=== PATIENT | female | born 1950 | race American Indian/Alaskan Native ===

== ENCOUNTER 2018-09-22 18:14 | Inpatient (IN) | payer BC ==
[2018-09-22 20:03] VITALS: BMI 36.6
[2018-09-22] MEDS ORDERED: Albuterol 0.042% Inhal Sol (1.25 mg/3 mL) UD IH PRN (21:18)
[2018-09-23] MEDS: Pantoprazole 40 mg EC Tab PO SCH (06:02)
[2018-09-23 06:35] LABS: HEMOGLOBIN 11.8 g/dL (12.0-16.0); MEAN CELL VOLUME 93.4 fl (81.0-99.0); MEAN CORPUSCULAR HEMOGLOBIN 30.5 pg (27.0-31.0); MEAN CORPUSCULAR HGB CONC 32.7 g/dL (33.0-37.0); RBC 3.87 Mil/uL (3.80-5.20); RED CELL DISTRIBUTION WIDTH 14.5 % (11.5-14.5); WHITE BLOOD COUNT 4.8 K/uL (4.8-10.8)
[2018-09-23 06:41] LABS: ALB/GLOB RATIO 1.3 (1.0-2.1); ALBUMIN 4.2 g/dL (3.5-5.0); ALT/SGPT 21 U/L (9-52); AST/SGOT 20 U/L (14-36); BLOOD UREA NITROGEN 13 mg/dl (7-17); CALCIUM 9.5 mg/dL (8.4-10.2); GFR NON-AFRICAN AMERICAN 55; HDL CHOLESTEROL 92 MG/DL (30-70)
[2018-09-23 06:52] LABS: LDL CHOLESTEROL 137 mg/dL (0-129)
[2018-09-23] MEDS ORDERED: Patient's Own Med (Arformoterol [Brovana] 15 MCG) IH SCH (09:00)
[2018-09-23] MEDS: Budesonide 0.25 mg/2 ml Inhal Susp UD IH SCH (09:21)
--- NOTE | 2018-09-23 13:06 | CP.PCM.CON ---
History of Present Illness - History of Present Illness History of Present Illness: Dr Sherman PMR consultation on Roya Welch, born 1950 who has been admitted to [facility] for acute inpatient rehabilitation following a left CVA with right HP. She had a very minor CVA in 2012 with no residual. She had previously been independent. She is right hand dominant. Review of Systems - Constitutional Constitutional: absent: Chills, Daytime Sleepiness - EENT Eyes: absent: Change in Vision Ears: absent: Ear Discharge, Ear Pain Nose/Mouth/Throat: absent: Nasal Congestion, Nasal Discharge - Cardiovascular Cardiovascular: absent: Chest Pain - Respiratory Respiratory: absent: Cough, Hemoptysis, Wheezing - Gastrointestinal Gastrointestinal: absent: Abdominal Pain, Constipation - Musculoskeletal Musculoskeletal: absent: Back Pain - Integumentary Integumentary: absent: Bleeding Lesions - Neurological Neurological: absent: Abnormal Hearing, Abnormal Movements, Dizziness - Hematologic/Lymphatic Hematologic: absent: Easy Bruising Past Patient History - Infectious Disease Hx of Infectious Diseases: None - Tetanus Immunizations Tetanus Immunization: Unknown - Past Medical History & Family History Past Medical History?: Yes - Past Social History Smoking Status: Never Smoked Drugs: Denies Home Situation {Lives}: With Family - CARDIAC Hx Cardiac Disorders: Yes Hx Hypertension: Yes - PULMONARY Hx Respiratory Disorders: Yes Hx Asthma: Yes - NEUROLOGICAL HX Cerebrovascular Accident: Yes (TIA in 08/2013) - HEENT Hx HEENT Problems: No - RENAL Hx Chronic Kidney Disease: No - ENDOCRINE/METABOLIC Hx Endocrine Disorders: No - HEMATOLOGICAL/ONCOLOGICAL Hx Blood Disorders: No - INTEGUMENTARY Hx Dermatological Problems: Yes (Healing rash noted to back.) - MUSCULOSKELETAL/RHEUMATOLOGICAL Hx Falls: No - GASTROINTESTINAL Hx Gastrointestinal Disorders: No - GENITOURINARY/GYNECOLOGICAL Hx Genitourinary Disorders: No - PSYCHIATRIC Hx Substance Use: No - SURGICAL HISTORY Hx Surgeries: No - ANESTHESIA Hx Anesthesia: No Meds Allergies/Adverse Reactions: Allergies Allergy/AdvReac Type Severity Reaction Status Date / Time codeine AdvReac HEADACHE Verified 09/22/18 23:30 - Medications Medications: Current Medications Acetaminophen (Tylenol 325mg Tab) 650 mg PO Q6 PRN PRN Reason: Pain 1-10 Albuterol Sulfate (Albuterol 0.042% Inhal Malina (1.25mg/3ml) Ud) 1.25 mg IH RQ4 P RN PRN Reason: Wheezing Amlodipine Besylate (Norvasc) 5 mg PO DAILY [facility] Last Admin: 09/23/18 08:23 Dose: 5 mg Aspirin (Aspirin Chewable) 81 mg PO DAILY [facility] Last Admin: 09/23/18 08:23 Dose: 81 mg Atorvastatin Calcium (Lipitor) 40 mg PO DIN [facility] Budesonide (Pulmicort Respules) 0.25 mg IH Q12 [facility] Last Admin: 09/23/18 09:21 Dose: Not Given Clopidogrel Bisulfate (Plavix) 75 mg PO DAILY [facility] Last Admin: 09/23/18 08:23 Dose: 75 mg Heparin Sodium (Porcine) (Heparin) 5,000 units SC Q12 [facility]; Protocol Last Admin: 09/23/18 08:24 Dose: 5,000 units Home Med (Arformoterol [Brovana]) 15 mcg IH Q12 [facility] Hydralazine HCl (Apresoline) 25 mg PO Q6 PRN PRN Reason: Systolic BP over 200 Pantoprazole Sodium (Protonix Ec Tab) 40 mg PO 0600 [facility] Last Admin: 09/23/18 06:02 Dose: 40 mg Physical Exam - Constitutional Appears: Non-toxic, No Acute Distress - Head Exam Head Exam: ATRAUMATIC, NORMAL INSPECTION, NORMOCEPHALIC - Eye Exam Eye Exam: EOMI - ENT Exam ENT Exam: Mucous Membranes Moist - Respiratory Exam Respiratory Exam: NORMAL BREATHING PATTERN - Cardiovascular Exam Cardiovascular Exam: REGULAR RHYTHM - GI/Abdominal Exam GI & Abdominal Exam: absent: Distended, Firm - Extremities Exam Extremities exam: Negative for: calf tenderness - Neurological Exam Neurological exam: Alert, CN II-XII Intact, Oriented x3 - Psychiatric Exam Psychiatric exam: Normal Affect, Normal Mood - Skin Skin Exam: Warm Results - Vital Signs Recent Vital Signs: Last Vital Signs Temp 97.7 F 09/23/18 08:37 Pulse 75 09/23/18 08:37 Resp 19 09/23/18 08:37 BP 160/69 H 09/23/18 08:37 Pulse Ox 97 09/23/18 08:37 - Labs Result Diagrams: 09/23/18 06:15 09/23/18 06:15 Labs: Laboratory Results - last 24 hr 09/23/18 09/23/18 09/23/18 06:15 06:15 06:15 WBC 4.8 RBC 3.87 Hgb 11.8 L Hct 36.1 MCV 93.4 MCH 30.5 MCHC 32.7 L RDW 14.5 Plt Count 280 Sodium 139 Potassium 4.5 Chloride 105 Carbon Dioxide 28 Anion Gap 11 BUN 13 Creatinine 1.0 Est GFR ( Amer) > 60 Est GFR (Non-Af Amer) 55 Random Glucose 123 H Hemoglobin A1c 6.0 Calcium 9.5 Total Bilirubin 0.3 AST 20 ALT 21 Alkaline Phosphatase 93 Total Protein 7.6 Albumin 4.2 Globulin 3.3 Albumin/Globulin Ratio 1.3 Triglycerides 81 Cholesterol 271 H LDL Cholesterol Direct 137 H HDL Cholesterol 92 H Vitamin B12 253 Assessment & Plan - Assessment and Plan (Free Text) Assessment: 68 year old right hand dominant female with left MCA distribution CVA PT/OT to continue to help increase functional independence Team conference for d/c planning Pain: controlled Vascular: no evidence of DVT GI: No evidence of constipation or diarrhea Patient is an excellent acute rehabilitation candidate and will have focused PT, OT and recreational therapy to help facilitate a safe and appropriate d/c plan impairment code 01.2
[2018-09-23] MEDS: Albuterol HFA 90 mcg/actuation (8 g) INH PRN (18:04)
[2018-09-24] MEDS: Pantoprazole 40 mg EC Tab PO SCH (06:55)
[2018-09-24] MEDS: Budesonide 0.25 mg/2 ml Inhal Susp UD IH SCH ×2 (08:45→20:06)
--- NOTE | 2018-09-24 13:39 | PCM.OPOC ---
Physiatry Overall Plan of Care - Overall Plan of Care Estimated Length of Stay in Weeks: 3 Rehab Impairment: Mobility, Gait, Balance, Coordination Etiologic Diagnosis: Cerebrovascular Accident Rehab/Medical Prognosis: Good - Anticipated Interventions Physical Therapy:: Yes Occupational Therapy:: Yes Speech Therapy:: No Recreational Therapy:: Yes - Therapy Goals Bed Mobility: Supervision Ambulation: Supervision Functional Positional Changes:: Supervision - Discharge Plan Discharge Destination: Home
--- NOTE | 2018-09-24 14:01 | CP.PCM.PN ---
Subjective - Date & Time of Evaluation Date of Evaluation: 09/24/18 Time of Evaluation: 14:00 - Subjective Subjective: Patient seen in room good PO intake very happy with current care to this point and working hard has some right upper extremity hand movement that is 3-/5 and proximal extension is stronger continue current care right LE 4/5 Objective - Vital Signs/Intake and Output Vital Signs (last 24 hours): Temp Pulse Resp BP Pulse Ox 98.1 F 78 21 148/75 97 09/24/18 08:39 09/24/18 08:39 09/24/18 08:39 09/24/18 08:39 09/24/18 08:39 - Medications Medications: Current Medications Acetaminophen (Tylenol 325mg Tab) 650 mg PO Q6 PRN PRN Reason: Pain 1-10 Albuterol (Ventolin Hfa 90 Mcg/Actuation (8 G)) 2 puff INH RQ6 PRN PRN Reason: Shortness of Breath Last Admin: 09/23/18 18:04 Dose: 2 puff Albuterol Sulfate (Albuterol 0.042% Inhal Malina (1.25mg/3ml) Ud) 1.25 mg IH RQ4 PRN PRN Reason: Wheezing Amlodipine Besylate (Norvasc) 5 mg PO DAILY [facility] Last Admin: 09/24/18 08:04 Dose: 5 mg Aspirin (Aspirin Chewable) 81 mg PO DAILY [facility] Last Admin: 09/24/18 08:05 Dose: 81 mg Atorvastatin Calcium (Lipitor) 80 mg PO DAILY [facility] Last Admin: 09/24/18 08:04 Dose: 80 mg Budesonide (Pulmicort Respules) 0.25 mg IH Q12 [facility] Last Admin: 09/24/18 08:45 Dose: Not Given Clopidogrel Bisulfate (Plavix) 75 mg PO DAILY [facility] Last Admin: 09/24/18 08:04 Dose: 75 mg Heparin Sodium (Porcine) (Heparin) 5,000 units SC Q12 [facility]; Protocol Last Admin: 09/24/18 08:05 Dose: 5,000 units Hydralazine HCl (Apresoline) 25 mg PO Q6 PRN PRN Reason: Systolic BP over 200 Last Admin: 09/24/18 08:05 Dose: 25 mg Pantoprazole Sodium (Protonix Ec Tab) 40 mg PO 0600 [facility] Last Admin: 09/24/18 06:55 Dose: 40 mg Fluticasone/Salmeterol (Advair Diskus 100/50) 1 puff IH Q12 PRN PRN Reason: Shortness of Breath - Labs Labs: 09/23/18 06:15 09/23/18 06:15
[2018-09-25] MEDS: Pantoprazole 40 mg EC Tab PO SCH (06:14)
[2018-09-25] MEDS: Budesonide 0.25 mg/2 ml Inhal Susp UD IH SCH ×2 (08:09→20:01)
--- NOTE | 2018-09-25 17:39 | CP.PCM.PN ---
Subjective - Date & Time of Evaluation Date of Evaluation: 09/25/18 Time of Evaluation: 17:36 - Subjective Subjective: Patient seen in the room and is in very good spirits and is very happy with all of the care she has received to this point. Some return in the right UE since yesterday no n/v no headaches continue with current care excellent acute rehab candidate Objective - Vital Signs/Intake and Output Vital Signs (last 24 hours): Temp Pulse Resp BP Pulse Ox 98.2 F 74 20 150/70 96 09/25/18 10:00 09/25/18 10:00 09/25/18 10:00 09/25/18 10:00 09/25/18 10:00 - Medications Medications: Current Medications Acetaminophen (Tylenol 325mg Tab) 650 mg PO Q6 PRN PRN Reason: Pain 1-10 Albuterol (Ventolin Hfa 90 Mcg/Actuation (8 G)) 2 puff INH RQ6 PRN PRN Reason: Shortness of Breath Last Admin: 09/23/18 18:04 Dose: 2 puff Albuterol Sulfate (Albuterol 0.042% Inhal Malina (1.25mg/3ml) Ud) 1.25 mg IH RQ4 PRN PRN Reason: Wheezing Amlodipine Besylate (Norvasc) 5 mg PO DAILY [facility] Last Admin: 09/25/18 08:40 Dose: 5 mg Aspirin (Aspirin Chewable) 81 mg PO DAILY [facility] Last Admin: 09/25/18 08:40 Dose: 81 mg Atorvastatin Calcium (Lipitor) 80 mg PO DAILY [facility] Last Admin: 09/25/18 08:41 Dose: 80 mg Budesonide (Pulmicort Respules) 0.25 mg IH Q12 [facility] Last Admin: 09/25/18 08:09 Dose: Not Given Clopidogrel Bisulfate (Plavix) 75 mg PO DAILY [facility] Last Admin: 09/25/18 08:40 Dose: 75 mg Heparin Sodium (Porcine) (Heparin) 5,000 units SC Q12 [facility]; Protocol Last Admin: 09/25/18 08:41 Dose: 5,000 units Hydralazine HCl (Apresoline) 25 mg PO Q6 PRN PRN Reason: Systolic BP over 200 Last Admin: 09/24/18 08:05 Dose: 25 mg Pantoprazole Sodium (Protonix Ec Tab) 40 mg PO 0600 [facility] Last Admin: 09/25/18 06:14 Dose: 40 mg Fluticasone/Salmeterol (Advair Diskus 100/50) 1 puff IH Q12 PRN PRN Reason: Shortness of Breath - Labs Labs: 09/23/18 06:15 09/23/18 06:15
--- NOTE | 2018-09-26 05:21 | HP ---
Late entry for history and physical done on 09/23/2018. HISTORY OF PRESENT ILLNESS: This is a 68-year-old female with history of hypertension who was admitted to acute rehabilitation at [facility] after sustaining a cerebrovascular accident with right-sided weakness the week before. The patient was treated for acute stroke, and she remained to have neurological deficit. The patient was admitted to acute rehabilitation for physical therapy, occupational therapy, and deconditioning. The patient denied to have any chest pain, shortness of breath; and other review of systems is negative. ALLERGIES: POSITIVE FOR CODEINE. MEDICATIONS: Reviewed and ordered as per MAR. SOCIAL HISTORY: No history of smoking, EtOH, or substance abuse. PAST MEDICAL HISTORY: Hypertension, bronchial asthma, hypercholesterolemia, and gastroesophageal reflux disease. FAMILY HISTORY: Noncontributory. PHYSICAL EXAMINATION: GENERAL: The patient is in bed, not in any cardiopulmonary distress. VITAL SIGNS: Blood pressure was 160/69, temperature 97.7, respiratory rate 19, and pulse 75. HEENT: Pupils equal and reactive to light. Normal-appearing mucosa of the conjunctivae, oropharynx, and nasal membrane mucosa. NECK: Supple. No JVD. No carotid bruit. No lymph node. No thyromegaly. CHEST AND LUNGS: Bilateral symmetrical expansion. Good air exchange. No rales, no rhonchi. CARDIOVASCULAR SYSTEM: PMI not localized. S1, S2. No additional sounds. ABDOMEN: Normoactive bowel sounds. No tenderness. No organomegaly. No masses. EXTREMITIES: No cyanosis, no clubbing, no edema. CENTRAL NERVOUS SYSTEM: Alert, awake, and oriented x2; and the patient has right-sided hemiparesis. ASSESSMENT: Cerebrovascular accident with right-sided hemiparesis, hypertension, hypercholesterolemia. PLAN: Continue current medications including antiplatelets, physical therapy, occupational therapy, physical medicine, and rehabilitation consult. [place] MD
[2018-09-26] MEDS: Pantoprazole 40 mg EC Tab PO SCH (06:22)
[2018-09-26] MEDS: Budesonide 0.25 mg/2 ml Inhal Susp UD IH SCH ×2 (08:11→20:04)
--- NOTE | 2018-09-26 17:23 | PN ---
DATE: 09/26/2018 SUBJECTIVE: She is not in any cardiopulmonary distress. The patient is cooperative to physical therapy and occupational therapy. PHYSICAL EXAMINATION: VITAL SIGNS: Blood pressure 143/68, temperature 97.9, respiratory rate 18 and pulse 70. HEENT: Pupils equal, reactive to light. Normal-appearing mucosa of the conjunctivae, oropharynx and nasal membrane mucosa. NECK: Supple. No JVD. No carotid bruit. No lymph node. No thyromegaly. CHEST AND LUNGS: Bilateral symmetrical expansion. Good air exchange. No rales, no rhonchi. CARDIOVASCULAR SYSTEM: PMI not localized. S1, S2. No additional sounds. ABDOMEN: Normoactive bowel sounds. No tenderness. No organomegaly. No masses. EXTREMITIES: No cyanosis, no clubbing, no edema. DRIVING INSTRUCTOR: Alert, awake, oriented x2. There is right-sided hemiparesis. ASSESSMENT: Cerebrovascular accident with right-sided hemiparesis, hypertension, hypercholesterolemia, atherosclerotic cardiovascular disease, history of bronchial asthma. PLAN: Continue current medications including statins and antiplatelet and continue the bronchodilators. Discussed the patient's condition with her primary care physician, Dr. Roldan. [place] MD
[2018-09-27] MEDS: Pantoprazole 40 mg EC Tab PO SCH (06:41)
[2018-09-27] MEDS: Fluticasone-Salmeterol 100-50mcg Diskus IH PRN (18:21)
[2018-09-27] MEDS: Budesonide 0.25 mg/2 ml Inhal Susp UD IH SCH (20:00)
[2018-09-28] MEDS: Pantoprazole 40 mg EC Tab PO SCH (06:19)
[2018-09-28] MEDS: Budesonide 0.25 mg/2 ml Inhal Susp UD IH SCH ×2 (07:14→20:00)
[2018-09-28] MEDS: Fluticasone-Salmeterol 100-50mcg Diskus IH PRN (21:18)
--- NOTE | 2018-09-28 23:34 | PN ---
DATE: 09/28/2018 SUBJECTIVE: The patient is seen today. She is cooperative to physical therapy and occupational therapy. PHYSICAL EXAMINATION VITAL SIGNS: Blood pressure 145/58, temperature 98.2, respiratory rate 18 and pulse 65. HEENT: Pupils equal and reactive to light. Normal-appearing mucosa of the conjunctivae, oropharynx and nasal membrane mucosa. NECK: Supple. No JVD. No carotid bruit. No lymph node. No thyromegaly. CHEST AND LUNGS: Bilateral symmetrical expansion. Good air exchange. No rales, no rhonchi. CARDIOVASCULAR SYSTEM: PMI not localized. S1 and S2. No additional sounds. ABDOMEN: Normoactive bowel sounds. No tenderness. No organomegaly. No masses. EXTREMITIES: No cyanosis. No clubbing. No edema. CENTRAL NERVOUS SYSTEM: Alert, awake, oriented x2. The patient has right-sided hemiparesis. ASSESSMENT: Cerebrovascular accident, hypertension, hypercholesterolemia. PLAN: Continue current medications and antilipidemic agents as well as antiplatelets. Continue physical therapy and occupational therapy. [place] MD
[2018-09-29] MEDS: Pantoprazole 40 mg EC Tab PO SCH (06:24)
[2018-09-29] MEDS: Budesonide 0.25 mg/2 ml Inhal Susp UD IH SCH ×4 (07:20→21:25)
--- NOTE | 2018-09-29 13:08 | PCM.PSYTMC ---
Acute Rehab Team Conference - - Vital Signs: Vital Signs (Last 8 Hours): Vital Signs 09/29/18 09/29/18 09/29/18 08:21 08:49 08:55 Temperature 96.6 F L 96.6 F L Pulse Rate 69 69 Respiratory 20 20 Rate Blood Pressure 133/96 H 133/96 H 133/96 H O2 Sat by Pulse 99 Oximetry Pain: 0 - Precautions: Precautions: Fall Prevention - Consults: Comment: Dr. Sherman - Toileting: Toileting: Supervision - Bladder Management: Bladder Pattern: Normal Voiding Method: Toilet Bladder Management: Supervision Other Intervention:: 0 - Transfers: Transfers: Minimal Assistance - ADL's: ADL's: Minimal Assistance - Patient/Family Teaching: Other Intervention:: Care post CVA and Safety precautions - Goals/Time Frame: Comment: Per multidisciplinary care plan and goals - Provider: Registered Nurse:: Ca Farmer Physical Therapy - Bed Mobility Bed Mobility: Supervision, Verbal Cues - Transfers Wheelchair to Mat: Supervision, Verbal Cues, Contact Guard Sit to Stand: Supervision, Verbal Cues Comment: NBQC. -cues for hand placement - Ambulation Level of Assistance: Supervision, Verbal Cues, Contact Guard, Minimal Assistance Distance (ft.): 100 Orthoses: n/a Comment: -100 feet x 4 trials with rest breaks. -progressed from WBQC to NBQC today. -patient requires CG/CS for gait with cues for sequencing and improved placement of cane for safety. -slow steady pattern with cues to try and improve fluidity. -reports fatigue in BLE with increased distances. -instances of min A for balance due to loss of balance 2' to narrow base of support. -VCs for upright gaze and sequencing. -seated rest breaks between trials. -trialed short distance no device of gait x 4-5 feet but patient with significant trendelenberg pattern, reaching for UE support on external devices and reports of feeling unsteady - Stair Negotiation Comment: 1 flight of steps with L rail with step to pattern, with CG on ascent and CG/min A on descent. -requires cues on descent for step to pattern and cues on ascent to ensure placement of full plantar surface of foot on each stair. - some SOB noted on descent but patient reports she didn't use inhaler for today - Standing Balance Static Stand: Supervision Comment: NBQC (LUE) - Pain Pain (assessed during therapy session): 0 Comment: pt denies pain - Insight/Carryover Insight/Carryover: Fair - Patient/Family Education Comment: -safety, therapy schedule, therapy goals, mobility, use of call george, transfers, encouraging bimanual UE integration, stroke recovery - Assessment/Plan Assessment: Ms. Welch continues to make good progress in therapies. Patient has impaired endurance as well as reports of feeling drowsy. Patient requires seated rest breaks between tasks. Patient has improving LLE control, coordination and activation but continues to require intermittent and unpredictable min A for safety with balance. PT progressed patient to NBQC and full flight of steps today with good response. Patient requires cues to attend to tasks and focus on her own activities instead of others around her. Patient continues to require skilled therapeutic services to continue addressing strength, mobility, safety, balance and education s/p CVA. PT recommends home discharge with intermittent supervision of family following care-taker training as well as home PT services. Pt returned to room at end of session with all needs met and call george in reach. RN aware of patients position OOB. - Goals Timeframe: 7 days Goals: -mod I withbed/mat mobility. -mod I with transfers with NBQC. -DS to ambulate 250 feet with NBQC. -S to negotiate 1 flight of steps with L rail on ascent and NBQC on descent (no rail on L side on descent at home) - Provider Physical Therapist:: Ritika Hoffman License Number:: [id number] Occupational Therapy - Arousal/Attention/Orientation Level of Consciousness: Awake, Alert Patient Orientation: Person, Place, Time, Appropriate to Age, Appropriate to Situation Assessment Comment: -impaired RUE motor control, AROM, & coordination. - impaired endurance/activity tolerance. -impaired safety awareness - ADL/IADL Self Feeding: Independent, Set-up Help Grooming: Independent, Set-up Help Bathing-Upper Ext: Verbal Cues, Set-up Help, Minimal Assistance Bathing-Lower Ext: Verbal Cues, Set-up Help, Moderate Assistance Dressing-Upper Ext: Verbal Cues, Set-up Help, Minimal Assistance Dressing-Lower Ext: Verbal Cues, Set-up Help, Minimal Assistance, Moderate Assistance Comment: -use of adaptive strategies for upper/lower body dressing, mila- techniques - Sitting Balance Static Sitting: Independent without upper extremity support Dynamic Sitting: Reaches across midline, Reaches out of base of support, Reaches within base of support, Requires supervision Comment: seated unsupported @ edge of bed - Transfers Wheelchair to Bed Transfers: Verbal Cues, Set-up Help, Contact Guard Toilet Transfers: Verbal Cues, Set-up Help, Contact Guard Comment: CG/CS and verbal cues for stand pivot transfers - Wheelchair Management Level of Assistance: Supervision Distance (ft.): 50 - Upper Extremity Status Right Upper Extremity Comment: *PROM IN RUE is WNLS. *AROM limited by impaired strength/motor control. *RUE status: R shoulder flex 3/5, abd 3-/5, elbow flex/extension: 3/5, forerarm supination/pronation: 3/5, wrist extension/flexion 3-/5, R thumb flexion/extension: 3-/5 Left Upper Extremity Comment: *LUE A/PROM is WNLS. *LUE strength 5/5 t/o - Pain Pain (assessed during therapy session): 0 Comment: N/A - Insight/Carryover Insight/Carryover: Fair - Patient/Family Education Comment: -rehab/OT goals, plan of care. -adl/transfers/mobility training using adaptive/compensatory strategies. -w/c propulsion/management. -RUE positioning/management/HEP-ROM exercises. -activity/endurance traning. - caregiver ed on self care strategies & pt's overall progress/future goals - Assessment/Plan Assessment: Pt is a 68 year old R handed female with dx: acute CVA with R hemiparesis. *Precautions: cardiac, fall precautions, + R laptray for RUE position. Pt presents with the following limitations: -impaired strength, AROM and motor control/coordination RUE/RLE. -impaired standing balance/tolerance. -impaired safety awareness. -impaired sensation RUE/R face. -impaired activity tolerance/endurance. -impaired knowledge of adaptive/compensatory strategies. -+min edema in RUE---which impact on fun ctional performnace of self care, functional transfers/mobility and IADLs. Pt demonstrates improve AROM/strength & gross motor function in RUE as well as improvement in sit<>stand/functional transfers, mobility however pt fatigies easily with standing activities. Pt will continue to benefit from skilled occupational therapy to address functional impairments to maximize functional performance & safety in self care, transfers and mobility for safe transition home with services pending progress. GOAL: *Mod I for adls, transfers/functional mobility, homemaking skills with assistive device(s) prn. *Caregiver to be I assisting/cueing pt with daily living tasks prn. - Goals Timeframe: 8 days Comment: *Upper body dressing: I/setup seated mila-techniques. *Lower body dressing: Supervision/setup using mila-techniques. *Toileting: Close S/CG and verbal cues with grab bar or ambulatory device. *Bathing: min assist and verbal cues seated/standing intermittently. *Transfers:<->bed,commode, w/c, & other surfaces with Supervision. *W/C propulsion/management: Mod I 150 feet +, manage B brake for safety. *RUE strength increase to 3+/5 throughout, deputy harbormaster strength to 10-lbs so can use as gross assist/active stabilzer duirng bimanual tasks. *Gather/transport/retrieve items from closet/drawer/refrigerator and other areas with CG/CS and verbal cues as needed to complete daily living tasks--using ambulatory device. *Caregiver ed: caregiver to be I assisting pt with adls, transfers/mobility, daily living tasks. *Light homemaking skills: min assist and verbal cues using ambulatory device - Provider Occupational Therapist:: Serena Riggins License Number: [id number] Speech Therapy - Consult Information Patient on Program: Yes Medical Diagnosis: CVA Treatment Diagnosis: minimal dysarthria - Assessment Comment: minimal - Plan Assessment: Yuri Pryor currently presents with minimal dysarthria characterized by intermittently impaired articulatory precision at the conversational level; however, pt utilizes compensatory speech strategies independently and her speech is intelligible 100% MOSHE. Pt has met all tx goals and is therefore being discharged from ST at this time. Discharge education and home exercise program was provided to pt with reciprocal comprehension expressed and demonstrated. Plan: Discharge Speech/Language Therapy Goals/Timeframe: Please see discharge summary dated 09/28/18 Recommendations: Discharge ST; pt has met all tx goals - Provider Therapist: Flora Morejon License Number: [id number] Recreational Therapy - Participation Participation: Participates in Individual and/or Group Sessions - Attendance Attendance: 3-5 times per week - Activities Leisure Activities: Cards and Games - Socialization Level of Socialization: Initiates/interacts freely with care givers and peer - Diversional Time Diversional Time: watching television, socializing - Assessment Assessment/Plan: Pt is agreeable to participate in 1:1 and group recreation therapy sessions throughout her stay on unit. Pt has participated in connect four task, bingo task with peers, and receives daily room visits for social support and encouragement. Pt will continue to benefit from recreation therapy and leisure education throughout her stay on unit. Problems Currently Limiting Participation: R side weakness as pt is R hand dominant, decrease leisure awareness level, decrease insight, R facial weakness Goals and Time Frame: Pt will be encouraged to participate in 1:1 and group recreation therapy sessions 3-5x/week to improve leisure awareness level, arousal level, leisure education, attention to task, problem solving, direction following, and overall mood state by date of discharge. - Provider Therapist: Megan Marie Nutrition - Current Diet Current Diet/Supplement/Feedings: Heart healthy - Appetite Percent Meal Consumed: 75-100% - Assessment/Goals/Time Frame Assessments/Goals/Time Frame: Pt at moderate nutritional risk. goal:1. Pt to consume 75-100% of meals. Follow-up 09/30/2018 - Provider Provider: Tosha Rossi Case Management - Psychosocial Assessment Support Systems: Renae Welch & Na Welch Psychological Interventions/Needs: Patient is alert and oriented and able to vebalize needs. Patient is cooperative and motivated for therapy as she has set personal goals to return to work and driving. Discharge Concerns: Patient will likely require intermittent supervision at home. Patient will require clearance prior to resuming work and driving. Patient with over a flight of stairs to negotiate at home. Patient/Family Meeting: CM met with patient and rehab team. Intervention/Goal/Outcome: 1. Goal- Intermittent supervision. 2. PLAN- home with VNS and continued support - refer to [facility]. 3. DME needs. 4. F/U appointments. 5. -Caregiver training scheduled with daughter for Friday10/02/18, 1pm. 6. Tentative discharge date 10/05/2018. 7. Continued acute rehab auth- CM spoke with RN/SHAHNAZ Costello with [employer] stating case is still pending review - Discharge Plan Discharge Plan: Home with services Home Services: [facility] - Provider Provider: Marsha Gonzalez License Number: [id number] Rehabilitation Plan - Treatment Plan Treatment Plan: Physical Therapy, Occupational Therapy, Dietary, Patient/Family Education - Discharge Plan Estimated Date of Discharge: 10/05/18 Discharge to: Home
--- NOTE | 2018-09-29 13:30 | CP.PCM.PN ---
Subjective - Date & Time of Evaluation Date of Evaluation: 09/29/18 Time of Evaluation: 13:28 - Subjective Subjective: Patient seen in room with daughter present doing well very motivated continue current care and family training especially diet training with her family on Objective - Vital Signs/Intake and Output Vital Signs (last 24 hours): Temp Pulse Resp BP Pulse Ox 96.6 F L 69 20 133/96 H 99 09/29/18 08:55 09/29/18 08:55 09/29/18 08:55 09/29/18 08:55 09/29/18 08:55 - Medications Medications: Current Medications Acetaminophen (Tylenol 325mg Tab) 650 mg PO Q6 PRN PRN Reason: Pain 1-10 Last Admin: 09/28/18 14:33 Dose: 650 mg Albuterol (Ventolin Hfa 90 Mcg/Actuation (8 G)) 2 puff INH RQ6 PRN PRN Reason: Shortness of Breath Last Admin: 09/23/18 18:04 Dose: 2 puff Albuterol Sulfate (Albuterol 0.042% Inhal Malina (1.25mg/3ml) Ud) 1.25 mg IH RQ4 PRN PRN Reason: Wheezing Amlodipine Besylate (Norvasc) 5 mg PO DAILY [facility] Last Admin: 09/29/18 08:21 Dose: 5 mg Aspirin (Aspirin Chewable) 81 mg PO DAILY [facility] Last Admin: 09/29/18 08:22 Dose: 81 mg Atorvastatin Calcium (Lipitor) 80 mg PO DAILY [facility] Last Admin: 09/29/18 08:21 Dose: 80 mg Budesonide (Pulmicort Respules) 0.25 mg IH Q12 [facility] Last Admin: 09/29/18 07:22 Dose: Not Given Clopidogrel Bisulfate (Plavix) 75 mg PO DAILY [facility] Last Admin: 09/29/18 08:21 Dose: 75 mg Heparin Sodium (Porcine) (Heparin) 5,000 units SC Q12 [facility]; Protocol Last Admin: 09/29/18 08:20 Dose: 5,000 units Hydralazine HCl (Apresoline) 25 mg PO Q6 PRN PRN Reason: Systolic BP over 200 Last Admin: 09/24/18 08:05 Dose: 25 mg Pantoprazole Sodium (Protonix Ec Tab) 40 mg PO 0600 [facility] Last Admin: 09/29/18 06:24 Dose: 40 mg Fluticasone/Salmeterol (Advair Diskus 100/50) 1 puff IH Q12 PRN PRN Reason: Shortness of Breath Last Admin: 09/28/18 21:18 Dose: 1 puff - Labs Labs: 09/23/18 06:15 09/23/18 06:15
[2018-09-30] MEDS: Pantoprazole 40 mg EC Tab PO SCH (06:36)
[2018-09-30] MEDS: Budesonide 0.25 mg/2 ml Inhal Susp UD IH SCH ×2 (08:56→20:00)
[2018-10-01] MEDS: Pantoprazole 40 mg EC Tab PO SCH (07:10)
[2018-10-01] MEDS: Fluticasone-Salmeterol 100-50mcg Diskus IH PRN (09:48)
[2018-10-01] MEDS: Budesonide 0.25 mg/2 ml Inhal Susp UD IH SCH (20:05)
[2018-10-02] MEDS: Pantoprazole 40 mg EC Tab PO SCH (06:50)
[2018-10-02] MEDS: Budesonide 0.25 mg/2 ml Inhal Susp UD IH SCH ×2 (09:00→20:48)
[2018-10-02] MEDS: Albuterol HFA 90 mcg/actuation (8 g) INH PRN (12:00)
[2018-10-02] MEDS: Fluticasone-Salmeterol 100-50mcg Diskus IH PRN (13:21)
--- NOTE | 2018-10-02 14:38 | CP.PCM.PN ---
Subjective - Date & Time of Evaluation Date of Evaluation: 10/02/18 Time of Evaluation: 14:37 - Subjective Subjective: Patient seen in the PT gym and is very happy with progress can range her arm overhead fair handgrip denies sob/cp can go sit to stand without assistance or dizziness continue family training which is being done now Objective - Vital Signs/Intake and Output Vital Signs (last 24 hours): Temp Pulse Resp BP Pulse Ox 98.2 F 81 20 113/70 99 10/01/18 20:40 10/02/18 08:26 10/01/18 20:40 10/02/18 08:26 10/01/18 20:40 - Medications Medications: Current Medications Acetaminophen (Tylenol 325mg Tab) 650 mg PO Q6 PRN PRN Reason: Pain 1-10 Last Admin: 09/28/18 14:33 Dose: 650 mg Albuterol (Ventolin Hfa 90 Mcg/Actuation (8 G)) 2 puff INH RQ6 PRN PRN Reason: Shortness of Breath Last Admin: 09/23/18 18:04 Dose: 2 puff Albuterol Sulfate (Albuterol 0.042% Inhal Malina (1.25mg/3ml) Ud) 1.25 mg IH RQ4 PRN PRN Reason: Wheezing Amlodipine Besylate (Norvasc) 5 mg PO DAILY [facility] Last Admin: 10/02/18 08:26 Dose: 5 mg Aspirin (Aspirin Chewable) 81 mg PO DAILY [facility] Last Admin: 10/02/18 08:26 Dose: 81 mg Atorvastatin Calcium (Lipitor) 80 mg PO DAILY [facility] Last Admin: 10/02/18 08:26 Dose: 80 mg Budesonide (Pulmicort Respules) 0.25 mg IH Q12 [facility] Last Admin: 10/02/18 09:00 Dose: Not Given Clopidogrel Bisulfate (Plavix) 75 mg PO DAILY [facility] Last Admin: 10/02/18 08:26 Dose: 75 mg Heparin Sodium (Porcine) (Heparin) 5,000 units SC Q12 [facility]; Protocol Last Admin: 10/02/18 08:27 Dose: 5,000 units Hydralazine HCl (Apresoline) 25 mg PO Q6 PRN PRN Reason: Systolic BP over 200 Last Admin: 09/24/18 08:05 Dose: 25 mg Pantoprazole Sodium (Protonix Ec Tab) 40 mg PO 0600 [facility] Last Admin: 10/02/18 06:50 Dose: 40 mg Fluticasone/Salmeterol (Advair Diskus 100/50) 1 puff IH Q12 PRN PRN Reason: Shortness of Breath Last Admin: 10/02/18 13:21 Dose: 1 puff - Labs Labs: 09/23/18 06:15 09/23/18 06:15
[2018-10-03] MEDS: Pantoprazole 40 mg EC Tab PO SCH (06:37)
[2018-10-03] MEDS: Budesonide 0.25 mg/2 ml Inhal Susp UD IH SCH ×2 (08:01→20:00)
[2018-10-03 08:05] LABS: HEMOGLOBIN 11.9 g/dL (12.0-16.0); MEAN CORPUSCULAR HEMOGLOBIN 30.5 pg (27.0-31.0); MEAN CORPUSCULAR HGB CONC 32.4 g/dL (33.0-37.0); RBC 3.91 Mil/uL (3.80-5.20); RED CELL DISTRIBUTION WIDTH 14.3 % (11.5-14.5); WHITE BLOOD COUNT 6.3 K/uL (4.8-10.8)
[2018-10-03 08:31] LABS: BLOOD UREA NITROGEN 19 mg/dl (7-17); CALCIUM 9.3 mg/dL (8.4-10.2); GFR NON-AFRICAN AMERICAN 55
[2018-10-03] MEDS: Fluticasone-Salmeterol 100-50mcg Diskus IH PRN (17:53)
--- NOTE | 2018-10-03 23:34 | PN ---
DATE: 10/02/2018 Late entry for visit done on 10/02/2018. The patient was seen on 10/02/2018. SUBJECTIVE: She was not in any cardiopulmonary distress. The patient is cooperative with physical therapy and occupational therapy. PHYSICAL EXAMINATION: VITAL SIGNS: Blood pressure was 138/75, temperature 98.2, respiratory rate 20, and pulse 68. HEENT: Pupils equal, reactive to light. Normal-appearing mucosa of the conjunctivae, oropharynx, and nasal membrane mucosa. NECK: Supple. No JVD. No carotid bruit. No lymph node. No thyromegaly. CHEST AND LUNGS: Bilateral symmetrical expansion. Good air exchange. No rales. The patient has mild scattered rhonchi in both lung grimes. CARDIOVASCULAR SYSTEM: PMI not localized. S1, S2. No additional sounds. ABDOMEN: Normoactive bowel sounds. No tenderness. No organomegaly. No masses. EXTREMITIES: No cyanosis, no clubbing, no edema. CENTRAL NERVOUS SYSTEM: Alert, awake, oriented x2 and the patient has right-sided hemiparesis. ASSESSMENT: Cerebrovascular accident with right-sided hemiparesis, hypertension, bronchial asthma, and hypercholesterolemia. PLAN: We will give the patient bronchodilators and inhaled steroid. Continue current antiplatelets and statins. Continue physical therapy and occupational therapy. [place] MD
[2018-10-04] MEDS: Pantoprazole 40 mg EC Tab PO SCH (06:25)
[2018-10-04] MEDS: Budesonide 0.25 mg/2 ml Inhal Susp UD IH SCH ×2 (08:09→20:01)
[2018-10-05] MEDS: Pantoprazole 40 mg EC Tab PO SCH (06:10)
[2018-10-05] MEDS: Fluticasone-Salmeterol 100-50mcg Diskus IH PRN (08:09)
[2018-10-05] MEDS: Budesonide 0.25 mg/2 ml Inhal Susp UD IH SCH ×2 (09:18→21:17)
[2018-10-05 15:07] LABS: ALB/GLOB RATIO 1.2 (1.0-2.1); ALBUMIN 4.3 g/dL (3.5-5.0); CALCIUM 9.3 mg/dL (8.4-10.2)
--- NOTE | 2018-10-06 00:15 | PN ---
DATE: 10/05/2018 DAILY PROGRESS NOTE SUBJECTIVE: The patient is seen today, 10/05/2018. She is not in any cardiopulmonary distress. The patient was complaining of cramps in the lower abdomen and left leg the day before. PHYSICAL EXAMINATION: VITAL SIGNS: Blood pressure 149/71, temperature 97.2, respiratory rate 18, and pulse 66. HEENT: Pupils equal and reactive to light. Normal-appearing mucosa of the conjunctivae, oropharynx, and nasal membrane mucosa. NECK: Supple. No JVD. No carotid bruit. No lymph node. No thyromegaly. CHEST AND LUNGS: Bilateral symmetrical expansion. Good air exchange. No rales. No rhonchi. CARDIOVASCULAR SYSTEM: PMI not localized. S1 and S2. No additional sounds. ABDOMEN: Normoactive bowel sounds. No tenderness. No organomegaly. No masses. EXTREMITIES: No cyanosis, no clubbing, no edema. CENTRAL NERVOUS SYSTEM: Alert, awake, oriented x3. Right-sided hemiparesis. LABORATORY DATA: Blood work today did not show any significant abnormality including magnesium and calcium. ASSESSMENT: Cerebrovascular accident with right-sided hemiparesis, hypercholesterolemia, hypertension. PLAN: Continue physical therapy and occupational therapy. Continue current medications and hydration. Encourage oral hydration. [place] MD
[2018-10-06] MEDS: Pantoprazole 40 mg EC Tab PO SCH (06:41)
[2018-10-06] MEDS: Budesonide 0.25 mg/2 ml Inhal Susp UD IH SCH ×2 (09:05→20:52)
--- NOTE | 2018-10-06 11:50 | PCM.PSYTMC ---
Acute Rehab Team Conference - - Vital Signs: Vital Signs (Last 8 Hours): Vital Signs 10/06/18 10/06/18 10/06/18 07:35 08:08 09:03 Temperature 97.2 F L 97.3 F L Pulse Rate 78 78 78 Respiratory 20 20 Rate Blood Pressure 145/66 144/78 145/66 O2 Sat by Pulse 98 Oximetry Pain: 0 - Precautions: Precautions: Fall Prevention - Consults: Comment: Dr. Sherman - Toileting: Toileting: Supervision - Bladder Management: Bladder Pattern: Normal Voiding Method: Toilet Bladder Management: Supervision Other Intervention:: 0 - Transfers: Transfers: Supervision - ADL's: ADL's: Minimal Assistance - Patient/Family Teaching: Other Intervention:: re: fall precaution. and safety environment - Goals/Time Frame: Comment: free from fall. q shift. - Provider: Registered Nurse:: Markus Beauchamp Physical Therapy - Bed Mobility Bed Mobility: Modified Independent, Supervision - Transfers Wheelchair to Mat: Modified Independent, Supervision Sit to Stand: Modified Independent Comment: NBQC - Ambulation Level of Assistance: Supervision, Verbal Cues Assistive Devices: Narrow base quad cane Orthoses: n/a Comment: 160 feet with NBQC with supervision. -requires cues to ensure placement of cane on ground prior to placement of RLE on ground to provide positive support to the LE during gait. -patient requests standing rest breaks during gait due to fatigue and SOB. -utilized reciprocal pattern with slow steady gait pattern with combination of step 2 point and 3 point gait pattern - Stair Negotiation Stairs: Level of Assistance: Supervision, Contact Guard Stairs: Assistive Devices: Left Handrail, Narrow base quad cane Comment: -asc/desc 1 flight of 8 inch steps with L rail on ascent with step to pattern with CS and descent with CG with use of NBQC in LUE. -some hesitancy on descent but slightly improved from last week - Standing Balance Static Stand: Modified [place] with assistive device Comment: NBQC - Pain Pain (assessed during therapy session): 0 Comment: routine: patient denies pain. -today: patient reports L hand and LLE posterior thigh cramping; reports RLE cramping last night while trying to sleep (RN aware) - Insight/Carryover Insight/Carryover: Fair - Patient/Family Education Comment: -safety, therapy schedule, therapy goals, mobility, safety, stroke rec overy, use of DME, recommendations for continued therapies. -family training with Daughter completed 10/02, see PT treatment note for details - Assessment/Plan Assessment: Patient continues to make slow but steady progress in therapies. Patient requires rest breaks due to fatigue from breathing (h/o asthma) as well as due to fatigue from lack of full muscular strength on R side. PT continues to focus therapies on improving strength, endurance, safety and reducing external assistance required with mobility. PT continues to focus on negotiation of steps as this is the area which patient continues to require hands on assistance on descent. Pt will continue to benefit from skilled therapy to maximize safety and I with all mobility s/p CVA. PT continues to recommend home discharge with home services and intermittent supervision. - Goals Timeframe: 3 days Goals: mod I with bed/mat mobility. mod i with transfers. mod I with short distance gait of 100 fete. S with long distance gait of 200 feet. CS with negotiation of steps on both ascent and descent - Provider Physical Therapist:: Ritika Hoffman License Number:: [id number] Occupational Therapy - Arousal/Attention/Orientation Level of Consciousness: Awake, Alert Patient Orientation: Person, Place, Time, Appropriate to Age, Appropriate to Situation Assessment Comment: -anxious baout RUE function, future life goals & lifestyle - ADL/IADL Self Feeding: Independent Grooming: Set-up Help Bathing-Upper Ext: Verbal Cues, Set-up Help, Minimal Assistance Bathing-Lower Ext: Verbal Cues, Set-up Help, Minimal Assistance Dressing-Upper Ext: Independent, Set-up Help Dressing-Lower Ext: Supervision, Set-up Help Homemaking: Verbal Cues, Set-up Help, Minimal Assistance Comment: -pt uses mila-techniques ti complete upper/lower body dressing tasks. -pt needs verbal cues to pace self and to focus on task at hand - Sitting Balance Static Sitting: Independent without upper extremity support Dynamic Sitting: Reaches across midline, Reaches out of base of support, Reaches within base of support - Transfers Wheelchair to Bed Transfers: Supervision, Verbal Cues, Set-up Help Toilet Transfers: Set-up Help Tub Transfers: Supervision, Verbal Cues, Set-up Help Comment: shower transfers: CS/Supervsion and verbal cues slippery surfaces with use of garb bar & hand held shower - Wheelchair Management Level of Assistance: Modified Independent Distance (ft.): 150 - Upper Extremity Status Right Upper Extremity Comment: *PROM IN RUE is WNLS. *AROM limited by impaired strength/motor control. *RUE status: R shoulder flex 3/5, abd 3-/5, elbow flex/extension: 3/5, forerarm supination/pronation: 3/5, wrist extension/flexion 3-/5, R thumb flexion/extension: 3-/5. Left Upper Extremity Comment: *LUE A/PROM is WNLS. *LUE strength 5/5 t/o - Pain Pain (assessed during therapy session): 0 - Insight/Carryover Insight/Carryover: Good - Patient/Family Education Comment: -self care/transfers/mobility training & IAdls using adaptive/compensatory strategies--with good carryover but cues needed for pacing since pt easily distracted. -w/c propulsion/management, safety, brake managment. -RUE positioning/management/HEP-ROM exercises to complete on own. - activity/endurance traning. -caregiver ed on self care strategies & pt's overall progress/future goals. -uses/applications of commode, shower chair with back - Assessment/Plan Assessment: Pt is a 68 year old R handed female with dx: acute CVA with R hemiparesis. *Precautions: cardiac, fall precautions. Pt currently CG/CS & verbal cues overall for adls, transfers/mobility using assistive device. Pt will continue from ongoing skilled Occupational Therapy to improve safety, standing balance/tolerance, RUE motor control /isolation to maximize function in self care, functional transfers/mobility, Iadls using mila-techniques, assistive devices. Pt will need the following DMEs & devices upon discharge home: *3 in one commode. *shower chair. *NBQC. * hand held shower. *non-skid mat for improve safety. Pt will benefit from additional acute rehab stay to maxmize overall function and safety for transition home. Recommend home with services then transition to outpatient PT & OT upon discharge. Pt may benefit from psychology consult & emotional support to learn coping skills to learn to deal with limitations & lifestyle/role changes. *Goal: Intermittent Supervision for adls, transfers/mobility, light homemaking skills using adaptive devices. - Goals Timeframe: 3 days Comment: *Upper body dressing: I/setup seated mila-techniques. *Lower body dressing: Distant S/setup using mila-techniques seated. *Toileting: Mod I and verbal cues with grab bar or ambulatory device. *Bathing: I/setup seated/standing intermittently. *Transfers:<->bed,commode, w/c, & other surfaces with DistantSupervision. *RUE strength increase to 3+/5 throughout, well head pumper strength to 10-lbs so can use as gross assist/active stabilzer duirng bimanual tasks. *Gather/transport/retrieve items from closet/drawer/refrigerator and other areas with CG/CS and verbal cues as needed to complete daily living tasks--using ambulatory device. *Caregiver ed: caregiver to be I assisting pt with adls, transfers/mobility, daily living tasks. *Homemaking skills/kitchen tasks: CG/CS and verbal cues using ambulatory device - Provider Occupational Therapist:: Serena Riggins License Number: [id number] Speech Therapy - Consult Information Patient on Program: Yes Medical Diagnosis: CVA Treatment Diagnosis: minimal dysarthria - Assessment Comment: minimal - Plan Assessment: Yuri Pryor currently presents with minimal dysarthria characterized by intermittently impaired articulatory precision at the conversational level; however, pt utilizes compensatory speech strategies independently and her speech is intelligible 100% MOSHE. Pt has met all tx goals and is therefore being discharged from ST at this time. Discharge education and home exercise program was provided to pt with reciprocal comprehension expressed and demonstrated. Plan: Discharge Speech/Language Therapy Goals/Timeframe: Please see discharge summary dated 09/28/18 Recommendations: Discharge ST; pt has met all tx goals - Provider Therapist: Flora Morejon License Number: [id number] Recreational Therapy - Participation Participation: Participates in Individual and/or Group Sessions - Attendance Attendance: 3-5 times per week - Activities Leisure Activities: Cards and Games - Socialization Level of Socialization: Initiates/interacts freely with care givers and peer - Diversional Time Diversional Time: watching television, socializing - Assessment Assessment/Plan: Pt is agreeable to participate in 1:1 and group recreation therapy sessions. Pt participates in connect four tasks, card tasks, bingo task with peers, as well as others. Pt is continuing to demonstrate improved function with R hand and engaging in more leisure tasks utilizing R hand. Pt's barriers to participation is decrease insight. 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 Pt will continue to benefit from participating in recreation therapy sessions throughout stay on unit. Problems Currently Limiting Participation: R side weakness as pt is R hand dominant, decrease leisure awareness level, decrease insight, decrease hand-eye coordination Goals and Time Frame: Pt will be encouraged to participate in 1:1 and group recreation therapy sessions 3-5x/week to improve leisure awareness level, arousal level, leisure education, attention to task, problem solving, direction following, and overall mood state by date of discharge. - Provider Therapist: Megan Marie Nutrition - Current Diet Current Diet/Supplement/Feedings: Heart healthy diet - Appetite Percent Meal Consumed: 75-100% - Assessment/Goals/Time Frame Assessments/Goals/Time Frame: Pt at moderate nutritional risk. goal: 1. Pt to consume 75-100% of meals (met, continue). Follow-up due on 10/07/2018 - Provider Provider: Tosha Rossi Case Management - Psychosocial Assessment Support Systems: Renae Welch - daughter & Na Welch - sister (picking up on day of discharge) Psychological Interventions/Needs: Patient is alert and oriented and able to vebalize needs. Patient is cooperative and motivated for therapy. Patient wants to return to work. Discharge Concerns: Patient will likely require intermittent supervision at home. Patient will require clearance prior to resuming work and driving. Patient with over a flight of stairs to negotiate at home. Patient is requesting outpatient therapy upon discharge as opposed to in home. Patient/Family Meeting: CM met with patient and rehab team Intervention/Goal/Outcome: 1.Goal- Intermittent supervision. 2. PLAN- home with outpatient PT/OT 3. CM to schedule appointment with [facility]. 4. DME needs-NBQC & commode ordered delivered. 5. F/U appointments with PMD & neuro. 6. Discharge set for 10/07/18. 7. Insurance LAD: 10/06/18 - Discharge Plan Discharge Plan: Outpatient rehab - Provider Provider: Marsha Gonzalez License Number: [id number] Rehabilitation Plan - Treatment Plan Treatment Plan: Physical Therapy, Occupational Therapy, Dietary, Patient/Family Education - Recommendation Recommendation: Physical Therapy, Occupational Therapy, Dietary, Patient/Family Education - Discharge Plan Discharge to: Home (DC 21)
--- NOTE | 2018-10-06 11:56 | CP.PCM.PN ---
Subjective - Date & Time of Evaluation Date of Evaluation: 10/06/18 Time of Evaluation: 10:00 - Subjective Subjective: no acute complaints at present Objective - Vital Signs/Intake and Output Vital Signs (last 24 hours): Temp Pulse Resp BP Pulse Ox 97.3 F L 78 20 145/66 98 10/06/18 09:03 10/06/18 09:03 10/06/18 09:03 10/06/18 09:03 10/06/18 09:03 - Medications Medications: Current Medications Acetaminophen (Tylenol 325mg Tab) 650 mg PO Q6 PRN PRN Reason: Pain 1-10 Last Admin: 09/28/18 14:33 Dose: 650 mg Albuterol (Ventolin Hfa 90 Mcg/Actuation (8 G)) 2 puff INH RQ6 PRN PRN Reason: Shortness of Breath Last Admin: 10/02/18 12:00 Dose: 2 puff Albuterol Sulfate (Albuterol 0.042% Inhal Malina (1.25mg/3ml) Ud) 1.25 mg IH RQ4 PRN PRN Reason: Wheezing Amlodipine Besylate (Norvasc) 5 mg PO DAILY [facility] Last Admin: 10/06/18 08:08 Dose: 5 mg Aspirin (Aspirin Chewable) 81 mg PO DAILY [facility] Last Admin: 10/06/18 08:08 Dose: 81 mg Atorvastatin Calcium (Lipitor) 80 mg PO DAILY [facility] Last Admin: 10/06/18 08:09 Dose: 80 mg Budesonide (Pulmicort Respules) 0.25 mg IH Q12 [facility] Last Admin: 10/05/18 21:17 Dose: Not Given Clopidogrel Bisulfate (Plavix) 75 mg PO DAILY [facility] Last Admin: 10/06/18 08:07 Dose: 75 mg Heparin Sodium (Porcine) (Heparin) 5,000 units SC Q12 [facility]; Protocol Last Admin: 10/06/18 08:09 Dose: 5,000 units Hydralazine HCl (Apresoline) 25 mg PO Q6 PRN PRN Reason: Systolic BP over 200 Last Admin: 10/06/18 08:08 Dose: 25 mg Pantoprazole Sodium (Protonix Ec Tab) 40 mg PO 0600 [facility] Last Admin: 10/06/18 06:41 Dose: 40 mg Fluticasone/Salmeterol (Advair Diskus 100/50) 1 puff IH Q12 PRN PRN Reason: Shortness of Breath Last Admin: 10/05/18 08:09 Dose: 1 puff - Labs Labs: 10/03/18 07:00 10/05/18 14:26 - Head Exam Head Exam: ATRAUMATIC, NORMAL INSPECTION, NORMOCEPHALIC - Eye Exam Eye Exam: EOMI, Normal appearance, PERRL Pupil Exam: NORMAL ACCOMODATION - ENT Exam ENT Exam: Mucous Membranes Moist, Normal Exam - Neck Exam Neck Exam: Full ROM, Normal Inspection - Respiratory Exam Respiratory Exam: Clear to Ausculation Bilateral, NORMAL BREATHING PATTERN - Cardiovascular Exam Cardiovascular Exam: REGULAR RHYTHM - GI/Abdominal Exam GI & Abdominal Exam: Soft, Normal Bowel Sounds - Rectal Exam Rectal Exam: NORMAL INSPECTION - Exam External exam: NORMAL EXTERNAL EXAM - Extremities Exam Extremities Exam: Full ROM, Normal Capillary Refill, Normal Inspection - Back Exam Back Exam: NORMAL INSPECTION - Neurological Exam Neurological Exam: Alert, Awake Neuro motor strength exam: Left Upper Extremity: 3, Right Upper Extremity: 2/1, Left Lower Extremity: 3, Right Lower Extremity: 3 - Psychiatric Exam Psychiatric exam: Normal Affect, Normal Mood - Skin Skin Exam: Dry, Intact Assessment and Plan (1) Hypertension Status: Acute (2) Ischemic stroke Assessment & Plan: plan for Dc status post Pt, Ot therapy team conference Status: Acute (3) TIA (transient ischemic attack) Status: Acute
[2018-10-07] MEDS: Pantoprazole 40 mg EC Tab PO SCH (06:51)
[2018-10-07 08:11] VITALS: BP 137/68; PULSE 71
[2018-10-07 09:12] VITALS: RESP 18; TEMP 97.7; O2SAT 98
[2018-10-07] MEDS: Budesonide 0.25 mg/2 ml Inhal Susp UD IH SCH (09:31)
--- NOTE | 2018-10-07 12:55 | CP.PCM.PN ---
Subjective - Date & Time of Evaluation Date of Evaluation: 10/07/18 Time of Evaluation: 11:00 - Subjective Subjective: no acute complaints at present Objective - Vital Signs/Intake and Output Vital Signs (last 24 hours): Temp Pulse Resp BP Pulse Ox 97.7 F 71 18 137/68 98 10/07/18 09:12 10/07/18 09:12 10/07/18 09:12 10/07/18 09:12 10/07/18 09:12 - Medications Medications: Current Medications Acetaminophen (Tylenol 325mg Tab) 650 mg PO Q6 PRN PRN Reason: Pain 1-10 Last Admin: 09/28/18 14:33 Dose: 650 mg Albuterol (Ventolin Hfa 90 Mcg/Actuation (8 G)) 2 puff INH RQ6 PRN PRN Reason: Shortness of Breath Last Admin: 10/02/18 12:00 Dose: 2 puff Albuterol Sulfate (Albuterol 0.042% Inhal Malina (1.25mg/3ml) Ud) 1.25 mg IH RQ4 PRN PRN Reason: Wheezing Amlodipine Besylate (Norvasc) 5 mg PO DAILY [facility] Last Admin: 10/07/18 08:10 Dose: 5 mg Aspirin (Aspirin Chewable) 81 mg PO DAILY [facility] Last Admin: 10/07/18 08:09 Dose: 81 mg Atorvastatin Calcium (Lipitor) 80 mg PO DAILY [facility] Last Admin: 10/07/18 08:10 Dose: 80 mg Budesonide (Pulmicort Respules) 0.25 mg IH Q12 [facility] Last Admin: 10/07/18 09:31 Dose: Not Given Clopidogrel Bisulfate (Plavix) 75 mg PO DAILY [facility] Last Admin: 10/07/18 08:10 Dose: 75 mg Heparin Sodium (Porcine) (Heparin) 5,000 units SC Q12 [facility]; Protocol Last Admin: 10/07/18 08:10 Dose: 5,000 units Hydralazine HCl (Apresoline) 25 mg PO Q6 PRN PRN Reason: Systolic BP over 200 Last Admin: 10/06/18 08:08 Dose: 25 mg Pantoprazole Sodium (Protonix Ec Tab) 40 mg PO 0600 [facility] Last Admin: 10/07/18 06:51 Dose: 40 mg Fluticasone/Salmeterol (Advair Diskus 100/50) 1 puff IH Q12 PRN PRN Reason: Shortness of Breath Last Admin: 10/05/18 08:09 Dose: 1 puff - Labs Labs: 10/03/18 07:00 10/05/18 14:26 - Head Exam Head Exam: ATRAUMATIC, NORMAL INSPECTION, NORMOCEPHALIC - Eye Exam Eye Exam: EOMI, Normal appearance, PERRL Pupil Exam: NORMAL ACCOMODATION - ENT Exam ENT Exam: Mucous Membranes Moist, Normal Exam - Neck Exam Neck Exam: Full ROM, Normal Inspection - Respiratory Exam Respiratory Exam: NORMAL BREATHING PATTERN - Cardiovascular Exam Cardiovascular Exam: REGULAR RHYTHM - GI/Abdominal Exam GI & Abdominal Exam: Soft, Normal Bowel Sounds - Rectal Exam Rectal Exam: NORMAL INSPECTION - Exam External exam: NORMAL EXTERNAL EXAM - Extremities Exam Extremities Exam: Full ROM, Normal Capillary Refill, Normal Inspection - Back Exam Back Exam: NORMAL INSPECTION - Neurological Exam Neurological Exam: Alert, Awake Neuro motor strength exam: Left Upper Extremity: 3, Right Upper Extremity: 3, Left Lower Extremity: 3, Right Lower Extremity: 3 - Psychiatric Exam Psychiatric exam: Normal Affect, Normal Mood - Skin Skin Exam: Dry Assessment and Plan (1) Hypertension Status: Acute (2) Ischemic stroke Status: Acute (3) TIA (transient ischemic attack) Assessment & Plan: plan for discharge today with additional service and follow up with PMD Status: Acute
== END 2018-10-07 14:01 | disposition home health service (06) | DRG 57 ==
LOC: UNDOADMIN 18:14
PROVIDERS: ADMIT Internal Medicine; ATTEND Internal Medicine
PROC: F07Z9FZ Gait Training/Functional Ambulation Treatment using Assistive, Adaptive, Supportive or Protective Equipment (ICD-10-PCS; principal; 2018-09-22)
PROC: F07L6GZ Therapeutic Exercise Treatment of Musculoskeletal System - Lower Back / Lower Extremity using Aerobic Endurance and Conditioning Equipment (ICD-10-PCS; 2018-09-22)
PROC: F06Z6ZZ Communicative/Cognitive Integration Skills Treatment (ICD-10-PCS; 2018-09-22)
PROC: F07Z8FZ Transfer Training Treatment using Assistive, Adaptive, Supportive or Protective Equipment (ICD-10-PCS; 2018-09-22)
DX: I69.351 Hemiplegia and hemiparesis following cerebral infarction affecting right dominant side (principal); I69.322 Dysarthria following cerebral infarction; E78.00 Pure hypercholesterolemia, unspecified; I10 Essential (primary) hypertension; I25.10 Atherosclerotic heart disease of native coronary artery without angina pectoris; K21.9 Gastro-esophageal reflux disease without esophagitis; J45.909 Unspecified asthma, uncomplicated; Z88.6 Allergy status to analgesic agent